=== PATIENT | male | born 1945 | race Two or more races ===

== ENCOUNTER 2021-08-07 15:40 | Outpatient (CLI) | payer OTHER | END 2021-08-07 16:00 | disposition home or self-care (01) | LOC: PPH VACUNA 15:40 | PROVIDERS: ATTEND Emergency Medicine Pediatric Emergency Medicine | DX: Z23 Encounter for immunization (principal) ==

== ENCOUNTER 2021-08-28 10:15 | Outpatient (CLI) | payer OTHER | END 2021-08-28 10:30 | disposition home or self-care (01) | LOC: PPH VACUNA 10:15 | PROVIDERS: ATTEND Emergency Medicine Pediatric Emergency Medicine | DX: Z23 Encounter for immunization (principal) ==

== ENCOUNTER 2021-11-15 07:33 | Outpatient (CLI) | payer OTHER | END 2021-11-15 07:40 | disposition home or self-care (01) | LOC: RX STUDY 07:33 | DX: R13.14 Dysphagia, pharyngoesophageal phase (principal) ==